=== PATIENT | male | born 1990 | race Caucasian/White ===

== ENCOUNTER 2018-10-03 13:29 | Emergency (ER) | payer OTHER ==
[~2018-10-03] VITALS: Ht 170.2 cm; Wt 61.2 kg
[~2018-10-03 13:29] MED LIST: TYL3 PO
[2018-10-03 13:55] VITALS: BP 103/75
[2018-10-03 15:23] LABS: BARBITURATE, URINE NEGATIVE ng/ml (NEG <=200); BENZODIAZEPINE, URINE NEGATIVE ng/mL (NEG <=200); CANNABINOID, URINE NEGATIVE ng/mL (NEG <=50); COCAINE, URINE NEGATIVE ng/mL (NEG <=300); OPIATE, URINE NEGATIVE ng/mL (NEG <=2000); PHENCYCLIDINE SCREEN,URINE NEGATIVE ng/mL (NEG <=25)
[2018-10-03 15:35] VITALS: BP 118/75
== END 2018-10-03 15:35 | disposition home or self-care (01) ==
LOC: MED 13:29
DX: R07.89 Other chest pain (principal); Z79.1 Long term (current) use of non-steroidal anti-inflammatories (NSAID)
CPT/HCPCS: 80305; 81002; 93005; 99284

== ENCOUNTER 2021-05-05 09:58 | Emergency (ER) | payer OTHER ==
[~2021-05-05] VITALS: Ht 170.2 cm; Wt 64.9 kg
[~2021-05-05 09:58] MED LIST changes: +ACET-503 PO; -TYL3 PO
[2021-05-05 10:10] VITALS: BP 110/73
[2021-05-05 11:15] VITALS: BP 110/73
== END 2021-05-05 11:15 | disposition home or self-care (01) ==
LOC: MED 09:58
DX: S46.211A Strain of muscle, fascia and tendon of other parts of biceps, right arm, initial encounter (principal); Z88.0 Allergy status to penicillin; Z79.899 Other long term (current) drug therapy; X50.0XXA Overexertion from strenuous movement or load, initial encounter; Y93.89 Activity, other specified; Y92.89 Other specified places as the place of occurrence of the external cause; Y99.8 Other external cause status
CPT/HCPCS: 99281

== ENCOUNTER 2021-08-27 21:56 | Emergency (ER) | payer OTHER ==
[~2021-08-27] VITALS: Ht 175.3 cm; Wt 77.1 kg
[2021-08-27 21:59] VITALS: BP 136/56
[2021-08-27 23:26] VITALS: BP 136/56
--- NOTE | 2021-08-27 23:26 | NUR ---
PATIENT BIB [employer]. PATIENT EXAMINED BY DR. THOMAS. PATIENT MEDICALLY CLEARED AND RELEASED IN CUSTODY IN STABLE CONDITION. ORIGINAL PRE-BOOK FORM GIVEN TO OFFICER JEFFY.
== END 2021-08-27 23:26 | disposition home or self-care (01) ==
LOC: MED 21:56
DX: S00.83XA Contusion of other part of head, initial encounter (principal); F10.129 Alcohol abuse with intoxication, unspecified; Z88.0 Allergy status to penicillin; Z79.899 Other long term (current) drug therapy; W19.XXXA Unspecified fall, initial encounter; Y93.89 Activity, other specified; Y92.89 Other specified places as the place of occurrence of the external cause; Y99.8 Other external cause status
CPT/HCPCS: 70450; 99284

== ENCOUNTER 2021-10-21 01:50 | Emergency (ER) | payer OTHER ==
[~2021-10-21] VITALS: Ht 170.2 cm; Wt 63.5 kg
[2021-10-21 01:55] VITALS: BP 142/79
--- NOTE | 2021-10-21 01:55 | NUR ---
TO BED AMBULATORY
--- NOTE | 2021-10-21 02:24 | NUR ---
31 Y/O BIB BROTHER, C/O LACERATION TO LEFT FOREARM AT 2100 YESTERDAY. PATIENT PRESENTS TO ED WITH 1.5 INCH LACERATION, MUSCLE TISSUE VISIBLE, BLEEDING CONTROLLED. PT STATES THIS WAS AN ATTEMPT TO END HIS LIFE DUE TO THE DEPRESSION HE HAS OF TRYING TO QUIT ALCOHOL AND RECREATIONAL DRUGS. PT STATED THIS IS NOT HIS FIRST ATTEMPT AT SUICIDE. PT DENIES N/V/D; SKIN IS PINK/WARM/DRY; AAOX4 WITH EVEN AND STEADY GAIT; LUNGS CLEAR BL; HR EVEN AND REGULAR; PT DENIES ANY FEVER, CP, SOB, OR COUGH AT THIS TIME; PATIENT STATES PAIN OF 10/10 AT THIS TIME; VSS; PT INTERVIEWED BY CHARGE NURSE AND PLACED ON A 5150 HOLD FOR ATMITTED ATTEMPT OF SUICIDE. PATIENT POSITIONED FOR COMFORT; HOB ELEVATED; BEDRAILS UP X1; BED DOWN. ER MD MADE AWARE OF PT STATUS. HX: DEPRESSION, ETOH, BIPOLAR DRUG USE ALL: PCN NO MEDS
--- NOTE | 2021-10-21 02:32 | NUR ---
LABS AT BEDSIDE
[2021-10-21 02:40] LABS: BASOPHILS % (AUTO) 0.3 % (0.0-2.0); EOSINOPHILS % (AUTO) 0.2 % (0.0-4.0); HEMOGLOBIN 14.6 g/dL (12.0-18.0); LYMPHOCYTES # (AUTO) 1.8 K/uL (2.0-11.5); LYMPHOCYTES % (AUTO) 20.6 % (20.5-51.1); MEAN CORPUSCULAR HEMOGLOBIN 31 pg (27-31); MEAN CORPUSCULAR HGB CONC 36 g/dL (33-37); MEAN CORPUSCULAR VOLUME 86.8 fL (80-94); MONOCYTES # (AUTO) 0.6 K/uL (0.8-1.0); MONOCYTES % (AUTO) 6.4 % (1.7-9.3); NEUTROPHILS # (AUTO) 6.4 K/uL (1.8-7.7); NEUTROPHILS % (AUTO) 72.5 % (42.2-75.2); PLATELET COUNT (AUTO) 178 K/uL (140-450); RED BLOOD CELL COUNT(AUTO) 4.72 MIL/uL (4.20-6.10); RED CELL DISTRIBUTION WIDTH 12.5 % (11.6-13.7); WHITE BLOOD COUNT (AUTO) 8.9 K/uL (4.8-10.8)
--- NOTE | 2021-10-21 02:49 | NUR ---
Dr. Haney examining patient.
[2021-10-21 02:59] LABS: ALBUMIN 4.3 g/dL (3.4-5.0); ANION GAP 12.4 (8-16); ASPARTATE AMINOTRANSFERASE 79 U/L (15-37); CARBON DIOXIDE 25.8 mmol/L (21-32); CHLORIDE 104 mmol/L (98-107); CREATININE 1.2 mg/dL (0.6-1.3); GFR ARICAN-AMERICAN 91 mL/min (>90); GLUCOSE 104 mg/dL (74-106); POTASSIUM 4.2 mmol/L (3.5-5.1); SODIUM SERUM 138 mmol/L (136-145); UREA NITROGEN, BLOOD 15 mg/dL (7-18)
[2021-10-21 03:01] LABS: ACETAMINOPHEN < 0.5 ug/ml (10-30); SALICYLATE < 2.8 mg/dL (2.8-20.0)
[2021-10-21] MEDS: LIDOCAINE/EPI 1% 1:100000 20 ML VIAL INJ ONE (03:25)
[2021-10-21] MEDS: KETOROLAC 30 MG/ML VIAL IVP ONE (03:27)
[2021-10-21] MEDS: ACETAMINOPHEN EXTRA STRENGTH 500 MG TAB PO ONE ×2 (03:27→12:17)
[2021-10-21 03:32] LABS: BARBITURATE, URINE NEGATIVE ng/ml (NEG <=200); BENZODIAZEPINE, URINE NEGATIVE ng/mL (NEG <=200); CANNABINOID, URINE NEGATIVE ng/mL (NEG <=50); COCAINE, URINE NEGATIVE ng/mL (NEG <=300); OPIATE, URINE NEGATIVE ng/mL (NEG <=2000); PHENCYCLIDINE SCREEN,URINE NEGATIVE ng/mL (NEG <=25)
--- NOTE | 2021-10-21 03:40 | NUR ---
DR BATISTA AT BEDSIDE PERFORMING PROCEDURE
[2021-10-21] MEDS ORDERED: BACITRACIN OINT 500 UNITS/GM PKT TP ONE (04:43)
[2021-10-21] MEDS: BACITRACIN OINT 500 UNITS/GM PKT TP ONE (04:56)
--- NOTE | 2021-10-21 07:28 | NUR ---
REPORT GIVEN TO INGRID COLIN
--- NOTE | 2021-10-21 07:38 | NUR ---
Packet faxed to the following facilities: [facility]
--- NOTE | 2021-10-21 10:35 | NUR ---
PT SLEEPING COMFORTABLY IN BED WITH 2 SIDERAILS UP.
--- NOTE | 2021-10-21 10:45 | NUR ---
RECEIVED REPORT FROM MORIS COLIN, TRANSFER OF CARE AT THIS TIME. PT SITTING UP IN BED QUIETLY EATING BREAKFAST. PT DENIES SI/HI AT THIS TIME. PT A/O X4, GCS 15. CALL NEEDS MET AT THIS TIME.
--- NOTE | 2021-10-21 11:54 | NUR ---
GAVE REPORT TO SELVIN COLIN FOR TRANSFER TO [facility]. ETA FOR PHARMACIST IN CHARGE OWNER 20 MINS.
[2021-10-21 11:59] VITALS: BP 122/58
--- NOTE | 2021-10-21 12:15 | NUR ---
[facility] AT BEDSIDE FOR TRANSPORT
--- NOTE | 2021-10-21 12:23 | NUR ---
Patient to be transferred to [facility]. Is being transferred due to HIGHER LEVEL OF CARE. Receiving facility has accepting physician and available space. ER physician has signed transfer form. Patient or responsible republican has agreed to transfer and signed form. Patient belongings inventoried and will be sent with patient. Copy of nursing notes, lab reports, EKG, Physicians Orders and X-rays to be sent with patient. Report called to SELVIN COLIN at receiving facility. [facility] ambulance service has been called for transfer. ETA is APPROX 1 HR.
== END 2021-10-21 12:25 ==
LOC: MED 01:50
DX: S61.512A Laceration without foreign body of left wrist, initial encounter (principal); Z20.822 Contact with and (suspected) exposure to COVID-19; F32.9 Major depressive disorder, single episode, unspecified; F17.200 Nicotine dependence, unspecified, uncomplicated; F12.90 Cannabis use, unspecified, uncomplicated; F15.90 Other stimulant use, unspecified, uncomplicated; Z88.0 Allergy status to penicillin; Z79.899 Other long term (current) drug therapy; X78.9XXA Intentional self-harm by unspecified sharp object, initial encounter; Y93.89 Activity, other specified; Y92.89 Other specified places as the place of occurrence of the external cause; Y99.8 Other external cause status
CPT/HCPCS: 12004; 80053; 80305; 85025; 87426; 90471; 90715; 96374; 99285; G0480; G0482; J1885; J2001; U0003

== ENCOUNTER 2021-12-20 09:30 | Emergency (ER) | payer OTHER ==
[~2021-12-20] VITALS: Ht 170.2 cm; Wt 61.2 kg
[2021-12-20 09:50] VITALS: BP 118/73
[2021-12-20 11:07] VITALS: BP 118/73
--- NOTE | 2021-12-20 11:07 | NUR ---
NO NURSING INTERVENTIONS PROVIDED
--- NOTE | 2021-12-20 11:07 | NUR ---
Patient discharged with v/s stable. Written and verbal after care instructions ABOUT LACERATION CARE given and explained. Patient verbalized understanding. Ambulatory with steady gait. All questions addressed prior to discharge. Advised to follow up with PMD.
== END 2021-12-20 11:07 | disposition home or self-care (01) ==
LOC: MED 09:30
DX: S51.812D Laceration without foreign body of left forearm, subsequent encounter (principal); Z88.0 Allergy status to penicillin; Z79.899 Other long term (current) drug therapy; X58.XXXD Exposure to other specified factors, subsequent encounter
CPT/HCPCS: 99281

== ENCOUNTER 2022-03-20 11:04 | Emergency (ER) | payer OTHER ==
[~2022-03-20] VITALS: Ht 170.2 cm; Wt 65.8 kg
[2022-03-20 11:10] VITALS: BP 130/60
--- NOTE | 2022-03-20 11:22 | NUR ---
PT TAKEN TO XRAY [facility]IA [facility]
--- NOTE | 2022-03-20 11:54 | NUR ---
PT RETURNED TO BED 11 [facility]
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
--- NOTE | 2022-03-20 12:37 | NUR ---
DR. LONG BEDSIDE EVALUATING PT
--- NOTE | 2022-03-20 12:40 | NUR ---
PT TAKEN TO CT [facility]IA [facility]
--- NOTE | 2022-03-20 12:56 | NUR ---
PT RETURNED TO BED [address] [facility] [facility]
[2022-03-20 13:23] VITALS: BP 122/77
--- NOTE | 2022-03-20 13:23 | NUR ---
Patient appears to be resting comfortably in bed. Vital Signs within normal limits. Respirations even and unlabored.
[2022-03-20] MEDS ORDERED: ACET-8386 PO (13:43)
[2022-03-20] MEDS ORDERED: IBUP-2213 PO (13:43)
--- NOTE | 2022-03-20 13:47 | NUR ---
CLEANED DEBRI AND DRIED BLOOD OFF OF PTS RT AND LFT FOREARM & UPPER/LOWER LIP
--- NOTE | 2022-03-20 14:02 | NUR ---
Patient discharged with v/s stable. Written and verbal after care instructions given and explained. Patient alert, oriented and verbalized understanding of instructions. Ambulatory with even and steady gait to car. All questions addressed prior to discharge. ID band removed. Patient advised to follow up with PMD. Rx of ibuprofen, hydrocodone (sent) given. Patient educated on indication of medication including possible reaction and side effects. Opportunity to ask questions provided and answered.
== END 2022-03-20 14:00 | disposition home or self-care (01) ==
LOC: MED 11:04
DX: S70.11XA Contusion of right thigh, initial encounter (principal); M25.512 Pain in left shoulder; M54.6 Pain in thoracic spine; F17.200 Nicotine dependence, unspecified, uncomplicated; Z79.899 Other long term (current) drug therapy; Z88.0 Allergy status to penicillin; V89.2XXA Person injured in unspecified motor-vehicle accident, traffic, initial encounter; Y93.89 Activity, other specified; Y92.410 Unspecified street and highway as the place of occurrence of the external cause; Y99.8 Other external cause status
CPT/HCPCS: 70450; 72192; 73030; 99284

== ENCOUNTER 2023-05-07 13:54 | Emergency (ER) | payer MEDICAID, OTHER ==
[~2023-05-07] VITALS: Ht 175.3 cm; Wt 74.8 kg
[~2023-05-07 13:54] MED LIST changes: +ACET-8905 PO; +IBUP-2213 PO
[2023-05-07 14:06] VITALS: BP 147/83; PULSE 62; RESP 17; TEMP 97.7; O2SAT 98
--- NOTE | 2023-05-07 14:52 | NUR ---
Awaiting x-ray results of L shoulder. Monitoring status.
[2023-05-07] MEDS ORDERED: IBUP-2213 PO (17:05)
--- NOTE | 2023-05-07 17:51 | NUR ---
Patient discharged with v/s stable. Written and verbal after care instructions given and explained. Patient alert, oriented and verbalized understanding of instructions. Ambulatory with steady gait. All questions addressed prior to discharge. ID band removed. Patient advised to follow up with PMD. Rx of MOTRIN given. Patient educated on indication of medication including possible reaction and side effects. Opportunity to ask questions provided and answered. HOMELESS RESOURCES PROVIDED. PT TRYING TO ARRANGE TO GO AND STAY WITH [facility]. PT SPEAKING TO [facility] BROTHER. PT WAITING IN WAITING ROOM UNTIL [facility] BROTHER CAN COME AND CABLE TECHNICIAN PT. L SHOULDER SLING WAS APPLIED AT DISCHARGE.
[2023-05-07 17:55] VITALS: O2SAT 100
[2023-05-07 17:57] VITALS: BP 114/57; PULSE 60; RESP 16; TEMP 99.3
== END 2023-05-07 17:51 | disposition home or self-care (01) ==
LOC: MED 13:54
DX: M54.10 Radiculopathy, site unspecified (principal); F17.210 Nicotine dependence, cigarettes, uncomplicated; F12.90 Cannabis use, unspecified, uncomplicated; F11.90 Opioid use, unspecified, uncomplicated; Z79.899 Other long term (current) drug therapy; Z79.1 Long term (current) use of non-steroidal anti-inflammatories (NSAID); Z88.0 Allergy status to penicillin
CPT/HCPCS: 72050; 73030; 99284

== ENCOUNTER 2023-05-12 23:33 | Emergency (ER) | payer MEDICAID ==
[~2023-05-12] VITALS: Ht 170.2 cm; Wt 62.6 kg
[2023-05-12 23:50] VITALS: BP 126/78; PULSE 70; RESP 16; TEMP 99.2; O2SAT 100
[2023-05-12] MEDS ORDERED: LORazepam 2 MG/ML VIAL IM ONE (23:50)
[2023-05-12] MEDS ORDERED: diphenhydrAMINE 50 MG/ML VIAL IM ONE (23:50)
[2023-05-12] MEDS ORDERED: HALOPERIDOL IM 5 MG/ML VIAL IM ONE (23:50)
--- NOTE | 2023-05-12 23:50 | NUR ---
PT TO ROOM 5
[2023-05-13 00:04] VITALS: BP 126/78; PULSE 70; RESP 16
[2023-05-13 00:20] LABS: BASOPHILS % (AUTO) 0.6 % (0.0-2.0); EOSINOPHILS # (AUTO) 0.1 K/uL (0-0.4); EOSINOPHILS % (AUTO) 1.3 % (0.0-4.0); HEMATOCRIT 38.6 % (36-52); HEMOGLOBIN 13.2 g/dL (12.0-18.0); LYMPHOCYTES # (AUTO) 2.2 K/uL (2.0-11.5); LYMPHOCYTES % (AUTO) 32.2 % (20.5-51.1); MEAN CORPUSCULAR HEMOGLOBIN 29 pg (27-31); MEAN CORPUSCULAR HGB CONC 34 g/dL (33-37); MEAN CORPUSCULAR VOLUME 84.7 fL (80-94); MONOCYTES # (AUTO) 0.6 K/uL (0.8-1.0); NEUTROPHILS % (AUTO) 57.9 % (42.2-75.2); PLATELET COUNT (AUTO) 195 K/uL (140-450); RED BLOOD CELL COUNT(AUTO) 4.56 MIL/uL (4.20-6.10); RED CELL DISTRIBUTION WIDTH 14.3 % (11.6-13.7); WHITE BLOOD COUNT (AUTO) 6.9 K/uL (4.8-10.8)
--- NOTE | 2023-05-13 00:29 | NUR ---
URINE AND COVID SWABS COLLECTED AND SENT
[2023-05-13 00:39] LABS: ALBUMIN 3.5 g/dL (3.4-5.0); ANION GAP 10.1 (8-16); ASPARTATE AMINOTRANSFERASE 21 U/L (15-37); CARBON DIOXIDE 28.4 mmol/L (21-32); CHLORIDE 104 mmol/L (98-107); GFR ARICAN-AMERICAN 111 mL/min (>90); GLUCOSE 90 mg/dL (74-106); POTASSIUM 3.5 mmol/L (3.5-5.1); SODIUM SERUM 139 mmol/L (136-145); TOTAL BILIRUBIN 1.2 mg/dL (0.0-1.0); UREA NITROGEN, BLOOD 26 mg/dL (7-18)
[2023-05-13 00:42] LABS: SALICYLATE < 2.8 mg/dL (2.8-20.0)
[2023-05-13 00:43] LABS: BARBITURATE, URINE NEGATIVE ng/ml (NEG <=200); BENZODIAZEPINE, URINE NEGATIVE ng/mL (NEG <=200); CANNABINOID, URINE POSITIVE ng/mL (NEG <=50); COCAINE, URINE NEGATIVE ng/mL (NEG <=300); OPIATE, URINE NEGATIVE ng/mL (NEG <=2000); PHENCYCLIDINE SCREEN,URINE NEGATIVE ng/mL (NEG <=25)
--- NOTE | 2023-05-13 00:59 | NUR ---
33 YO M BIB SELF WITH SUICIDAL IDEATION. STATES HE IS A [employer] USER AND LAST USE WAS TODAY. PT STATES HE HAS HAD FEELINGS OF HURTING HIMSELF FOR 5 DAYS AND STATES HE HAS A PLAN TO HURT HIMSELF. AXO4. DENIES CP OR SOB. PT HAS HISTORY OF MANIC DEPRESSION AND SAYS HE HAS BEEN OFF HIS MEDICATION SINCE HE RAN OUT 2 YEARS AGO. SUICIDE PRECAUTIONS IN PLACE. ALLERGIES: PENICILLINS HX MANIC DEPRESSION
[2023-05-13 02:44] VITALS: O2SAT 100
[2023-05-13 04:56] VITALS: O2SAT 100
--- NOTE | 2023-05-13 04:57 | NUR ---
PT SLEEPING IN BED WITH NO S/S OF PAIN OR DISTRESS.
--- NOTE | 2023-05-13 06:34 | NUR ---
Patient discharged with v/s stable. Written and verbal after care instructions given and explained. Patient verbalized understanding. Ambulatory with steady gait. All questions addressed prior to discharge. Advised to follow up with PMD.
== END 2023-05-13 06:34 | disposition home or self-care (01) ==
LOC: MED 23:33
DX: F15.90 Other stimulant use, unspecified, uncomplicated (principal); J45.909 Unspecified asthma, uncomplicated; Z79.899 Other long term (current) drug therapy; Z88.0 Allergy status to penicillin
CPT/HCPCS: 36415; 80053; 80305; 84484; 85025; 96372; 99284; G0480; G0482; J1200; J1630; J2060